=== PATIENT | female | born 1950 | race Caucasian/White ===

== ENCOUNTER → 2019-09-02 | Outpatient (CLI) | payer MEDICARE, OTHER ==
[~2019-09-02] MED LIST: ASPIR 8181 MG PO; BUMETANIDE0.25 MG/1 IV PUSH; CO Q-10100 MG PO; CRESTOR5 MG PO; DIOVAN 80 MG TA80 M1 PO; FLONASE 0.05%50 MCG NASAL; FLUOCINONI0.05 %/30 TOP; KRILL OIL500 MG PO; VIACTIV SOFT C1 EACH PO; XANAX 0.5 MG0.5 M1 PO; ZOCOR20 MG PO; ZYRTEC10 M5 PO
== END ==
LOC: M.ULTRA 10:30
DX: M17.12 Unilateral primary osteoarthritis, left knee (principal); M79.605 Pain in left leg; M79.89 Other specified soft tissue disorders